=== PATIENT | female | born 1960 | race Caucasian/White ===

== ENCOUNTER 2022-04-08 17:04 | Emergency (ER) | payer OTHER ==
[~2022-04-08] VITALS: Ht 147.3 cm; Wt 113.4 kg
[2022-04-08 17:05] VITALS: BP_SYST 120
--- NOTE | 2022-04-08 17:20 | NUR ---
Patient triaged and placed in TENT. VSS and patient appears in no acute distress at this time. Accompanied by SELF , awaiting available bed, and MD notified of need for MSE.
--- NOTE | 2022-04-08 17:29 | NUR ---
ER DR. MATA EXAMINING PT
--- NOTE | 2022-04-08 17:36 | NUR ---
COVID SWAB DONE AND SENT TO LAB
[2022-04-08] MEDS ORDERED: ONDANSETRON 4 MG ODT TAB PO ONE (17:45)
--- NOTE | 2022-04-08 18:31 | NUR ---
LAB AT THE BEDSIDE
[2022-04-08 18:45] LABS: BASOPHILS # (AUTO) 0.1 K/uL (0.0-0.2); BASOPHILS % (AUTO) 0.5 % (0.0-2.0); EOSINOPHILS % (AUTO) 0.2 % (0.0-4.0); HEMATOCRIT 38.9 % (36-48); HEMOGLOBIN 13.4 g/dL (12.0-16.0); LYMPHOCYTES # (AUTO) 1.2 K/uL (1.0-5.5); MEAN CORPUSCULAR HEMOGLOBIN 31 pg (27-31); MEAN CORPUSCULAR HGB CONC 34 % (32-36); MEAN CORPUSCULAR VOLUME 89 fL (79.0-98.0); MONOCYTES # (AUTO) 0.9 K/uL (0.0-1.0); MONOCYTES % (AUTO) 7.8 % (1.7-9.3); NEUTROPHILS # (AUTO) 9.4 K/uL (1.8-7.7); NEUTROPHILS % (AUTO) 81.5 % (40.0-70.0); PLATELET COUNT (AUTO) 234 K/uL (130-430); RED BLOOD CELL COUNT(AUTO) 4.35 MIL/uL (4.2-6.2); RED CELL DISTRIBUTION WIDTH 13.5 % (9.0-15.0); WHITE BLOOD COUNT (AUTO) 11.6 K/uL (4.8-10.8)
--- NOTE | 2022-04-08 19:29 | NUR ---
Received report from Giovani LEVY; assuming care of patient at this time.
--- NOTE | 2022-04-08 19:35 | NUR ---
Patient A/Ox4, VSS, ambulatory, resp even and unlabored. Patient in tent due to (+) covid test today. Patient states "I feel okay, but I do have a headache and would like something to help with that." Patient reports pain /10. Nad noted at this time. Will continue to monitor.
--- NOTE | 2022-04-08 19:50 | NUR ---
Patient given bedside commode at bedside.
[2022-04-08] MEDS ORDERED: IBUPROFEN 800 MG TABLET PO ONE (20:15)
[2022-04-08 20:28] LABS: ANION GAP 9 (5-15); CALCIUM 8.7 mg/dL (8.4-11.0); CHLORIDE 102 mmol/L (98-107); CREATININE 0.91 mg/dL (0.55-1.30); GLUCOSE 102 mg/dL (70-99); POTASSIUM 4.4 mmol/L (3.5-5.1); SODIUM SERUM 137 mmol/L (136-145); UREA NITROGEN, BLOOD 15 mg/dL (8-21)
[2022-04-08 20:30] LABS: GFR AFRICAN AMERICAN 81 mL/min (>90)
[2022-04-08 20:44] LABS: ALANINE AMINOTRANSFERASE 25 U/L (12-78); ALBUMIN 3.5 g/dL (3.4-4.8); AMYLASE 29 U/L (0-100); ASPARTATE AMINOTRANSFERASE 20 U/L (10-37); C-REACTIVE PROTEIN QUANT 3.1 mg/dL (0-0.5); LIPASE 45 U/L (73-393); TOTAL BILIRUBIN 0.3 mg/dL (0.0-1.0)
[2022-04-08 20:57] LABS: BILIRUBIN,URINE NEGATIVE (NEGATIVE); BLOOD, URINE NEGATIVE (NEGATIVE); CLARITY/URINE CLEAR (CLEAR); COLOR,URINE YELLOW (YELLOW); GLUCOSE,URINE NEGATIVE (NEGATIVE); KETONES,URINE NEGATIVE (NEGATIVE); LEUKOCYTE ESTERASE ,URINE NEGATIVE (NEGATIVE); NITRITE, URINE NEGATIVE (NEGATIVE); PH,URINE 7.5 (5.0-8.0); PROTEIN URINE NEGATIVE (NEGATIVE)
[2022-04-08] MEDS ORDERED: ONDA-8 TL (20:57)
[2022-04-08] MEDS ORDERED: IBUP-1969 PO (20:57)
[2022-04-08 21:04] LABS: ACETONE, SERUM NEGATIVE (NEGATIVE)
--- NOTE | 2022-04-08 21:04 | NUR ---
Patient resting comfortably in bed with side rails raised. Nad noted at this time. Will continue to monitor.
--- NOTE | 2022-04-08 21:21 | NUR ---
lab at bedside
--- NOTE | 2022-04-08 21:35 | NUR ---
Patient given written and verbal discharge instructions and verbalizes understanding. ER MD discussed with patient the results and treatment provided. Patient in stable condition. ID arm band removed. Rx of given. Patient educated on pain management and to follow up with PMD. Pain Scale 3/10. Opportunity for questions provided and answered. Medication side effect fact sheet provided. Patient A/Ox4, VSS, ambulatory, resp even and unlabored. NAD noted at this time.
[2022-04-08 21:37] VITALS: BP_SYST 136
== END 2022-04-08 21:37 | disposition home or self-care (01) ==
LOC: SED 17:04
DX: U07.1 COVID-19 (principal); R11.2 Nausea with vomiting, unspecified; R10.32 Left lower quadrant pain; Z88.0 Allergy status to penicillin; Z79.899 Other long term (current) drug therapy
CPT/HCPCS: 99284; 74176; 87426; 80053; 82009; 82150; 83690; 85025; 86140; 36415; 76376; 83605; 81003; Q0162

== ENCOUNTER 2024-06-12 10:46 | Emergency (ER) | payer OTHER ==
[~2024-06-12] VITALS: Ht 162.6 cm; Wt 98.9 kg
[~2024-06-12 10:46] MED LIST: IBUP-1969 PO; ONDA-8 TL
[2024-06-12 10:53] VITALS: BP_SYST 181; PULSE 71; RESP 18; TEMP 97.5; O2SAT 96
[2024-06-12] MEDS: FAMOTIDINE 20 MG TABLET PO ONE (12:23)
[2024-06-12] MEDS: predniSONE 20 MG TABLET PO ONE (12:23)
[2024-06-12] MEDS ORDERED: PRED20TA PO (13:13)
[2024-06-12] MEDS ORDERED: FAMO40TA71 PO (13:14)
== END 2024-06-12 13:29 | disposition home or self-care (01) ==
LOC: SED 10:46
DX: R21 Rash and other nonspecific skin eruption (principal); T78.49XA Other allergy, initial encounter; Z88.0 Allergy status to penicillin; Z79.899 Other long term (current) drug therapy; X58.XXXA Exposure to other specified factors, initial encounter
CPT/HCPCS: 99283; J7512